=== PATIENT | male | born 1975 | race Caucasian/White ===

== ENCOUNTER 2022-04-20 12:05 | Day surgery (SDC) | payer OTHER ==
[2022-04-20] MEDS: Lactated Ringers 1,000 ML IV SCH (12:15)
[2022-04-20] MEDS ORDERED: fentaNYL 100 MCG/2 ML SDV ONE (13:34)
[2022-04-20] MEDS ORDERED: Propofol 200 MG/20 ML SDV ONE ×2 (13:34→13:41)
== END 2022-04-20 15:00 | disposition home or self-care (01) ==
LOC: VM.SDS 12:05
PROVIDERS: ATTEND Family Medicine
DX: Z12.11 Encounter for screening for malignant neoplasm of colon (principal); D12.6 Benign neoplasm of colon, unspecified; K64.8 Other hemorrhoids; E78.2 Mixed hyperlipidemia; F17.220 Nicotine dependence, chewing tobacco, uncomplicated; Z96.641 Presence of right artificial hip joint; Z98.890 Other specified postprocedural states; Z79.899 Other long term (current) drug therapy
CPT/HCPCS: 00812; 45380; J2704; J3010; J7120